=== PATIENT | female | born 1975 | race Caucasian/White ===

== ENCOUNTER 2019-02-24 14:11 | Emergency (ER) | payer SELFPAY ==
[~2019-02-24] VITALS: Ht 157.5 cm; Wt 75.4 kg
[~2019-02-24 14:11] MED LIST: FERR325E14 PO
[2019-02-24 14:16] VITALS: BP 135/100
--- NOTE | 2019-02-24 14:19 | NUR ---
PT RETURNED TO LOBBY IN STABLE CONDITION
--- NOTE | 2019-02-24 14:23 | NUR ---
PT AMBULATED TO ER BED 05
--- NOTE | 2019-02-24 14:25 | NUR ---
43 Y FEMALE BIB FAMILY C/O BODY RASH AFTER RETURN FROM TRIP TO [facility]. RASH COVERS UPPER EXTREMETIES AND BACK. +ITCHING, DENIES PAIN. -N/V. VSS AT THIS TIME. [id number]. BED IS DOWN, LOCKED, BED RAIL X 1, ERMD NOTIFIED. MED HX: NONE
--- NOTE | 2019-02-24 14:40 | NUR ---
DR PAINTING AT BEDSIDE
[2019-02-24] MEDS ORDERED: diphenhydrAMINE 50 MG CAP PO ONE (14:45)
[2019-02-24] MEDS ORDERED: FAMOTIDINE 20 MG TAB PO ONE (14:45)
[2019-02-24] MEDS ORDERED: methylPREDNISolone SS 125 MG in WATER STERILE 2 ML IM ONE (14:45)
--- NOTE | 2019-02-24 15:28 | NUR ---
PT SLEEPING IN BED, FAMILY BEDSIDE
[2019-02-24 15:39] VITALS: BP 131/88
--- NOTE | 2019-02-24 15:39 | NUR ---
Patient discharged with v/s stable. Written and verbal after care instructions given and explained. Patient alert, oriented and verbalized understanding of instructions. Ambulatory with steady gait. All questions addressed prior to discharge. ID band removed. Patient advised to follow up with PMD. Rx of PREDNISONE, BENADRYL, CORTIZONE TOPICAL CREAM given. Patient educated on indication of medication including possible reaction and side effects. Opportunity to ask questions provided and answered.
== END 2019-02-24 15:39 | disposition home or self-care (01) ==
LOC: MED 14:11
DX: L25.9 Unspecified contact dermatitis, unspecified cause (principal); Z79.899 Other long term (current) drug therapy
CPT/HCPCS: 96372; 99283; J2930; Q0163